=== PATIENT | female | born 1995 | race Caucasian/White ===

== ENCOUNTER 2016-09-11 08:41 | Emergency (ER) | payer BC ==
[~2016-09-11] VITALS: Ht 185.4 cm; Wt 113.4 kg
[2016-09-11 09:31] LABS: BASO % 0.6 % (0.0-1.0); EOS # 0.1 10*3/uL (0.0-0.4); EOS % 1.4 % (1.0-4.0); HEMATOCRIT 40.9 % (37.0-47.0); HEMOGLOBIN 13.9 g/dl (12.0-16.0); IG # 0.1 10*3/uL (0.0-0.1); LYMPH # 2.3 10*3/uL (1.3-4.4); LYMPH % 33.2 % (27.0-41.0); MEAN CELL VOLUME 85.4 fl (81.0-99.0); MEAN PLATELET VOLUME 10.5 fl (9.6-12.3); MONO # 0.6 10*3/uL (0.1-1.0); MONO % 7.8 % (3.0-9.0); NEUT # 3.9 10*3/uL (2.3-7.9); NEUT % 56.1 % (47.0-73.0); PLATELET COUNT AUTOMATED 323 10*3/uL (130-400); RED BLOOD COUNT 4.79 10*6/uL (4.10-5.10); RED CELL DISTRI WIDTH 13.2 % (0-14.5)
[2016-09-11 09:48] LABS: ALBUMIN 3.7 gm/dl (3.1-4.5); ALKALINE PHOSPHATASE 79 U/L (45-117); BILIRUBIN, TOTAL 0.4 mg/dl (0.2-1.0); BUN 6 mg/dl (7-24); C-REACTIVE PROTEIN 0.59 MG/DL (0-0.3); CARBON DIOXIDE 24 mmol/L (21-32); CHLORIDE 104 mmol/L (98-107); EST GLOM FILT AFRICAN AMERICAN > 60 ml/min; GLUCOSE 89 mg/dL (65-99); MAGNESIUM 1.8 mg/dL (1.5-2.1); SGOT/AST 21 IU/L (3-35); SGPT/ALT 40 U/L (12-78); SODIUM 139 mmol/L (136-145); TOTAL PROTEIN 7.7 gm/dL (6.4-8.2)
== END 2016-09-11 10:47 | disposition home or self-care (01) ==
LOC: ED 08:41
PROVIDERS: Emergency Medicine
DX: O36.4XX0 Maternal care for intrauterine death, not applicable or unspecified (principal); Z3A.08 8 weeks gestation of pregnancy

== ENCOUNTER 2017-03-11 12:36 | Emergency (ER) | payer OTHER, BC ==
[~2017-03-11] VITALS: Ht 185.4 cm; Wt 104.3 kg
[2017-03-11] MEDS ORDERED: ORPHENADRINE C100 M1 PO (12:50)
[2017-03-11] MEDS ORDERED: IBU800 M1 PO (12:51)
== END 2017-03-11 15:25 | disposition home or self-care (01) ==
LOC: ED 12:36
DX: S06.0X0A Concussion without loss of consciousness, initial encounter (principal); W10.8XXA Fall (on) (from) other stairs and steps, initial encounter; Y93.89 Activity, other specified; Y92.89 Other specified places as the place of occurrence of the external cause; Y99.9 Unspecified external cause status